=== PATIENT | male | born 1985 | race Caucasian/White ===

== ENCOUNTER 2022-02-27 10:41 | Outpatient (CLI) | payer OTHER, BC, SELFPAY ==
--- NOTE | 2022-02-27 10:15 | DI.RAD_ITS ---
Exam(s) XR KNEE RT 3V AP,LAT,DORY EXAM: XR KNEE RT 3V AP,LAT,DORY CLINICAL HISTORY: right knee pain. TECHNIQUE: 2D digital imaging was performed. COMPARISON: No exams were available for comparison FINDINGS: 3 views No evidence of fracture nor degenerative changes. No osteochondral defects. Small amount of increas ed joint fluid. No joint space narrowing. Bone density normal. No significant osseous lesions. IMPRESSION: No significant osseous findings. However, there appears to be a small amount of increased joint flui d. Appropriate follow-up recommended. DATA REPOSITORY: RADIATION DOSE DELIVERED:
== END 2022-02-27 10:42 | disposition home or self-care (01) ==
LOC: DIORS 10:42
PROVIDERS: Visit Provider Student in an Organized Health Care Education/Training Program
DX: M25.561 Pain in right knee (principal); M25.461 Effusion, right knee
CPT/HCPCS: 73562

== ENCOUNTER 2022-03-01 03:20 | Outpatient (CLI) | payer OTHER, BC, SELFPAY ==
--- NOTE | 2022-03-01 07:30 | DI.MRI_ITS ---
Exam(s) MR LOWER JOINT RT WO EXAM: MR LOWER JOINT RT WO CLINICAL HISTORY: Acute pain, weakness,RUPTURE RT QUADRICEPS TENDON. TECHNIQUE: Multiplanar multisequence MRI was performed. COMPARISON: CR XR KNEE RT 3V AP,LAT,DORY from 02/27/2022 FINDINGS: BONES: There is no fracture or contusion pattern. JOINTS: A small joint effusion is present. Articular cartilage: Patellofemoral joint: Mild thinning and focal defect at the patellar apex near the inferior pole.. There are a few small areas of high signal in the subcortical skull bone at the patellar apex. Medial femoral tibial joint: Focal area of cartilage thinning over the anterior medial femoral condy le with small focus of high signal in the underlying bone. Lateral femoral tibial joint: Articular cartilage is unremarkable. TENDONS: Extensor mechanism: Edema the fibers within distal quadriceps tendon, consistent with a partial tear. The patellar tendon appears normal. Medial retinaculum: Unremarkable. Lateral retinaculum: Unremarkable. Popliteus: Unremarkable. MUSCLES: Unremarkable. MENISCI: The medial meniscus is unremarkable. The lateral meniscus is unremarkable. SOFT TISSUES: Tiny León's cyst. LIGAMENTS: Anterior Cruciate: Unremarkable. Posterior Cruciate: Unremarkable. Medial Collateral:Unremarkable. Lateral Collateral: Unremarkable. OTHER: IMPRESSION: Mild partial tear of the distal quadriceps tendon. 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
== END 2022-03-01 03:40 ==
PROVIDERS: Visit Provider Student in an Organized Health Care Education/Training Program
DX: S76.111A Strain of right quadriceps muscle, fascia and tendon, initial encounter (principal); X58.XXXA Exposure to other specified factors, initial encounter
CPT/HCPCS: 73721